=== PATIENT | female | born 1990 | race Asian ===

== ENCOUNTER 2017-04-13 22:01 | Emergency (ER) | payer OTHER ==
[~2017-04-13] VITALS: Ht 170.2 cm; Wt 142.9 kg
[~2017-04-13 22:01] MED LIST: CIPR500T PO; FLUC150T PO
[2017-04-13 23:54] LABS: PLATELET COUNT 337 K/uL (152-353)
[2017-04-14 00:27] LABS: POTASSIUM 3.6 mmol/L (3.6-5.2); SODIUM 133 mmol/L (136-145)
[2017-04-14 01:26] VITALS: BP 147/78; TEMP 98.4
== END 2017-04-14 01:30 | disposition home or self-care (01) ==
LOC: ED 22:01
PROVIDERS: Specialist
DX: O20.0 Threatened abortion (principal); O23.30 Infections of other parts of urinary tract in pregnancy, unspecified trimester
CPT/HCPCS: 36415; 80048; 81000; 85027; 96361; 96365; 99284; J0690

== ENCOUNTER 2019-12-05 12:00 | Emergency (ER) | payer OTHER | END 2019-12-05 14:30 | disposition home or self-care (01) | LOC: ED 12:00 | DX: R52 Pain, unspecified (principal) | CPT/HCPCS: 99281 ==

== ENCOUNTER 2020-01-01 08:47 | Emergency (ER) | payer OTHER ==
[~2020-01-01] VITALS: Ht 170.2 cm; Wt 140.2 kg
[2020-01-01 08:51] VITALS: TEMP 98.1
[2020-01-01] MEDS ORDERED: LABETALOL100 MG PO (09:01)
[2020-01-01] MEDS ORDERED: CLON0.1T16 PO (09:02)
[2020-01-01 09:29] LABS: PLATELET COUNT 280 K/uL (152-353)
[2020-01-01 09:36] LABS: POTASSIUM 3.5 mmol/L (3.6-5.2)
[2020-01-01 10:30] VITALS: BP 129/73
== END 2020-01-01 10:38 | disposition home or self-care (01) ==
LOC: ED 08:47
PROVIDERS: Emergency Medicine
DX: J06.9 Acute upper respiratory infection, unspecified (principal); O99.512 Diseases of the respiratory system complicating pregnancy, second trimester; O99.012 Anemia complicating pregnancy, second trimester; Z3A.21 21 weeks gestation of pregnancy
CPT/HCPCS: 80053; 85027; 87502; 87651; 99283

== ENCOUNTER 2020-09-04 10:40 | Outpatient (CLI) | payer OTHER ==
[~2020-09-04 10:40] MED LIST changes: +CLON0.1T16 PO; +LABETALOL100 MG PO
== END 2020-09-04 20:44 | disposition home or self-care (01) ==
LOC: RAD 10:40
PROVIDERS: ATTEND Internal Medicine
DX: T14.90XA Injury, unspecified, initial encounter (principal)